=== PATIENT | female | born 1995 | race Two or more races ===

== ENCOUNTER 2016-04-09 17:29 | Emergency (ER) | payer OTHER ==
[2016-04-09 18:38] LABS: SPECIFIC GRAVITY 1.015 (1.001-1.030); URINE BILIRUBIN NEGATIVE (NEGATIVE); URINE BLOOD 1+ (NEGATIVE); URINE GLUCOSE (UA) NEGATIVE (NEGATIVE); URINE LEUKOCYTE ESTERASE NEGATIVE (NEGATIVE); URINE NITRITE NEGATIVE (NEGATIVE); URINE PROTEIN TRACE (NEGATIVE)
[2016-04-09 18:40] LABS: URINE APPEARANCE CLEAR; URINE COLOR AMBER; URINE UROBILINOGEN 8 mg/dL (0-1 mg/dl)
[2016-04-09 18:41] LABS: HCG,QUALITATIVE URINE NEGATIVE
[2016-04-09 18:48] LABS: URINE BACTERIA 2+; URINE EPITHELIAL CELLS 0-1 /hpf
== END 2016-04-09 19:11 | disposition home or self-care (01) ==
LOC: ED 17:29
DX: N39.0 Urinary tract infection, site not specified (principal); J02.9 Acute pharyngitis, unspecified; E86.0 Dehydration; R42 Dizziness and giddiness